=== PATIENT | male | born 1980 | race Caucasian/White ===

== ENCOUNTER 2016-06-09 15:30 | Outpatient (RCR) | payer BC ==
[~2016-06-09 15:30] MED LIST: AMBIEN CR12.5 MG ORAL; ATIVAN0.5 MG ORAL; AUGMENTIN 875-1 EAC1 ORAL; AZITHROMYCIN250 MG ORAL; BACTRIM DS TAB1 EAC1 ORAL; CIPRO500 MG PO; COLACE100 MG ORAL; FLAGYL500 MG ORAL; GUAIFENESIN-CO118 M1 ORAL; HYDROCODON-ACE1 EAC4 ORAL; LEVAQUIN750 MG ORAL; NEURONTIN100 MG ORAL; NORCO 5-325 TA1 EACH ORAL; ONDANSETRON ODT4 MG ORAL; PERCOCET 5-3251 EACH ORAL; PHENERGAN SUPP25 MG RECTAL; PHENERGAN25 M1 ORAL; PREDNISONE; PREDNISONE20 MG ORAL; PROTONIX40 MG ORAL; PROZAC10 MG ORAL; RANITIDINE HCL150 MG ORAL; RESTORIL15 MG ORAL; TRAMADOL HCL50 MG ORAL; ZANTAC150 MG ORAL; ZOFRAN ODT4 MG ORAL; ZOFRAN4 MG ORAL
[2016-06-13] MEDS ORDERED: OMEPRAZOLE20 M2 ORAL (11:35)
[2016-06-13] MEDS ORDERED: LIDEX15 GM TOPIC (12:00)
== END 2016-07-01 | disposition home or self-care (01) ==
LOC: PTY 15:30
DX: M54.5 Low back pain (principal); S13.4XXA Sprain of ligaments of cervical spine, initial encounter; S23.3XXA Sprain of ligaments of thoracic spine, initial encounter; X58.XXXA Exposure to other specified factors, initial encounter; Y92.9 Unspecified place or not applicable; Y99.8 Other external cause status
CPT/HCPCS: 97110; 97140; 97162; G0283

== ENCOUNTER 2016-06-13 11:21 | Inpatient (IN) | payer BC ==
[~2016-06-13] VITALS: Ht 198.1 cm; Wt 108.9 kg
[2016-06-13] MEDS ORDERED: OMEPRAZOLE20 M2 ORAL (11:35)
[2016-06-13] MEDS ORDERED: LIDEX15 GM TOPIC (12:00)
[2016-06-13 12:20] LABS: BASOPHILS % (AUTO) 0.6 % (0.0-2.0); LYMPHOCYTES % (AUTO) 21.8 % (20.0-45.0); MEAN CORPUSCULAR HEMOGLOBIN 28.6 PG (27.0-31.0); MEAN CORPUSCULAR HGB CONC 32.9 G/DL (32.0-36.0); MEAN CORPUSCULAR VOLUME 87 FL (80-99); MEAN PLATELET VOLUME 7.8 FL (6.5-10.1); MONOCYTES % (AUTO) 5.5 % (1.0-10.0); NEUTROPHILS % (AUTO) 71.1 % (45.0-75.0); PLATELET COUNT 342 K/UL (150-450); RED BLOOD COUNT 5.49 M/UL (4.70-6.10); RED CELL DISTRIBUTION WIDTH 13.2 % (11.6-14.8); WHITE BLOOD COUNT 16.8 K/UL (4.8-10.8)
[2016-06-13] MEDS ORDERED: Famotidine 20 MG/ 2ML VIAL IVP ONE (12:45)
[2016-06-13] MEDS ORDERED: LORazepam Inj 2mg/ml 1ml IV ONE (13:30)
[2016-06-13 13:47] LABS: ANION GAP 17 (5-15); CARBON DIOXIDE 23 mEQ/L (20-30); CHLORIDE 106 mEQ/L (98-107); CREATININE 0.7 mg/dL (0.7-1.2); GLOMERULAR FILTRATION RATE > 60 mL/min (>60); HEMOLYSIS 27; POTASSIUM 3.2 mEQ/L (3.4-4.9); SODIUM 146 mEQ/L (135-145)
[2016-06-13] MEDS ORDERED: Morphine Sulfate 4mg/ml Inj IVP ONE ×2 (14:00→16:00)
[2016-06-13 14:43] VITALS: BP 118/70
[2016-06-13 15:23] VITALS: BP 101/61
[2016-06-13 17:44] VITALS: BP 110/66
[2016-06-13 19:00] VITALS: BP 135/75
--- NOTE | 2016-06-13 20:59 | History and Physical ---
History of Present Illness General Date patient seen: Jun 13, 2016 Reason for Hospitalization: Abdominal Pain Present Illness HPI 35 year old male with hx of GI problems for a long time, presented to ER with episodes of N/V for a few days and most recently hematemesis. Pt also has intractable abdominal pain. Allergies: Coded Allergies: FLURBIPROFEN (Verified Allergy, Mild, 07/13/09) NSAIDS (NON-STEROIDAL ANTI-INFLAMMA (Unverified Allergy, Unknown, 12/07/14) Medication History Scheduled Fluocinonide* (Lidex*), 1 APPLIC TOPIC BID Fluoxetine Hcl* (Prozac*), 10 MG ORAL DAILY, (Reported) Gabapentin* (Neurontin*), 100 MG ORAL THREE TIMES A DAY, (Reported) Omeprazole (Omeprazole), 20 MG ORAL DAILY, (Reported) Promethazine Hcl* (Phenergan*), 50 MG ORAL Q8HR Ranitidine Hcl* (Zantac*), 150 MG ORAL QID, (Reported) Scheduled PRN Lorazepam* (Ativan*), 0.5 MG ORAL THREE TIMES A DAY PRN for For Anxiety, ( Reported) Ondansetron Odt* (Zofran Odt*), 4 MG ORAL Q6H PRN for Nausea & Vomiting Promethazine HCl (Promethegan), 25 MG RECTAL Q6H PRN for Nausea & Vomiting Temazepam* (Restoril*), 15 MG ORAL BEDTIME PRN for Insomnia, (Reported) Zolpidem Tartrate (Ambien Cr), 12.5 MG ORAL BEDTIME PRN for Insomnia, (Reported) Miscellaneous Medications [Prednisone], (Reported) Patient History History Provided By: Patient Healthcare decision maker Resuscitation status Advanced Directive on File Past Medical/Surgical History Past Medical/Surgical History: (1) Abdominal pain (2) Upper GI bleeding Review of Systems Gastrointestinal: Reports: abdominal pain, hematemesis, vomiting Physical Exam General Appearance: WD/WN Lines, tubes and drains: peripheral, central line HEENT: normocephalic, atraumatic Neck: non-tender, normal alignment Respiratory/Chest: chest wall non-tender, normal breath sounds Cardiovascular/Chest: normal peripheral pulses, normal rate Genitourinary/Rectal: normal genital exam Extremities: normal range of motion Last 24 Hour Vital Signs Date Time Temp Pulse Resp B/P Pulse Ox O2 Delivery O2 Flow Rate FiO2 06/13/16 19:00 97.7 68 20 135/75 97 Room Air 06/13/16 18:16 98.4 76 18 110/66 98 Room Air 74 06/13/16 17:44 98.4 76 18 110/66 98 Room Air 74 06/13/16 16:33 98.4 06/13/16 15:23 98.4 74 13 101/61 99 Room Air 06/13/16 14:48 97.2 06/13/16 14:43 97.2 68 19 118/70 98 Room Air 06/13/16 11:29 97.2 61 14 141/89 98 Room Air Laboratory Tests Test 06/13/16 11:45 06/13/16 13:10 White Blood Count 16.8 K/UL (4.8-10.8) H Red Blood Count 5.49 M/UL (4.70-6.10) Hemoglobin 15.7 G/DL (14.2-18.0) Hematocrit 47.8 % (42.0-52.0) Mean Corpuscular Volume 87 FL (80-99) Mean Corpuscular Hemoglobin 28.6 PG (27.0-31.0) Mean Corpuscular Hemoglobin Concent 32.9 G/DL (32.0-36.0) Red Cell Distribution Width 13.2 % (11.6-14.8) Platelet Count 342 K/UL (150-450) Mean Platelet Volume 7.8 FL (6.5-10.1) Neutrophils (%) (Auto) 71.1 % (45.0-75.0) Lymphocytes (%) (Auto) 21.8 % (20.0-45.0) Monocytes (%) (Auto) 5.5 % (1.0-10.0) Eosinophils (%) (Auto) 1.0 % (0.0-3.0) Basophils (%) (Auto) 0.6 % (0.0-2.0) Sodium Level 146 mEQ/L (135-145) H Potassium Level 3.2 mEQ/L (3.4-4.9) L Chloride Level 106 mEQ/L (98-107) Carbon Dioxide Level 23 mEQ/L (20-30) Anion Gap 17 (5-15) H Blood Urea Nitrogen 16 mg/dL (7-23) Creatinine 0.7 mg/dL (0.7-1.2) Estimat Glomerular Filtration Rate > 60 mL/min (>60) Glucose Level 110 mg/dL (74-106) H Calcium Level 8.0 mg/dL (8.6-10.2) L Height (Feet): 6 Weight (Pounds): 240 Medications Current Medications Medications (Trade) Dose Ordered Sig/Elisabeth Route PRN Reason Start Time Stop Time Status Last Admin Dose Admin Acetaminophen (Tylenol) 650 mg Q4H PRN ORAL fever 06/13/16 21:00 07/13/16 20:59 UNV Al Hydroxide/Mg Hydroxide (Mylanta II) 30 ml Q6H PRN ORAL dyspepsia 06/13/16 21:00 07/13/16 20:59 UNV Dextrose (Dextrose 50%) STAT PRN IV Hypoglycemia 06/13/16 21:00 07/13/16 20:59 UNV Dextrose/Sodium Chloride (D5 0.45% NS) 1,000 ml @ 75 mls/hr [id number] IV 06/13/16 17:40 07/13/16 17:39 UNV Diphenhydramine HCl (Benadryl) 25 mg Q6H PRN ORAL Itching/Pruritis 06/13/16 21:00 07/13/16 20:59 UNV Morphine Sulfate (Morphine Sulfate) 2 mg EVERY 4 HOURS PRN IVP severe Pain (Pain Scale 7-10) 06/13/16 21:00 06/20/16 20:59 UNV Nitroglycerin (Ntg) 0.4 mg Q5M X 3 DOSES PRN SL Prn Chest Pain 06/13/16 21:00 07/13/16 20:59 UNV Ondansetron HCl (Zofran) 4 mg Q6H PRN IVP Nausea & Vomiting 06/13/16 21:00 07/13/16 20:59 UNV Polyethylene Glycol (Miralax) 17 gm HSPRN PRN ORAL Constipation 06/13/16 21:00 07/13/16 20:59 UNV Temazepam (Restoril) 15 mg HSPRN PRN ORAL Insomnia 06/13/16 21:00 06/20/16 20:59 UNV Assessment/Plan Problem List: (1) Upper GI bleeding ICD Codes: K92.2 - Gastrointestinal hemorrhage, unspecified SNOMED: 81825909 (2) Abdominal pain ICD Codes: R10.9 - Unspecified abdominal pain SNOMED: 09736640 Qualifiers: Qualified Codes: R10.84 - Generalized abdominal pain Assessment/Plan npo iv fluids pain management gi evaluation EDUARDA MARI Jun 13, 2016 20:59
[2016-06-13] MEDS ORDERED: Nitroglycerin Subl 0.4mg tab (Bottle Of 25) SL PRN (21:00)
[2016-06-13] MEDS ORDERED: Mylanta II UD 30ml ORAL PRN (21:00)
[2016-06-13] MEDS ORDERED: Miralax 17gm pkt ORAL PRN (21:00)
[2016-06-13] MEDS: Morphine Sulfate 2mg/ml Inj IVP PRN (21:22)
[2016-06-13] MEDS: D5 1/2NS 1,000 ML IV SCH (21:45)
[2016-06-13 23:12] VITALS: BP 125/82
[2016-06-14] VITALS: BP 134/81
[2016-06-14] MEDS: Morphine Sulfate 2mg/ml Inj IVP PRN (01:39)
[2016-06-14] MEDS ORDERED: HYDROmorphone 1mg/ml Carpuject IVP PRN (02:30)
[2016-06-14 04:00] VITALS: BP 137/90
[2016-06-14 07:23] LABS: BASOPHILS % (AUTO) 0.7 % (0.0-2.0); EOSINOPHILS % (AUTO) 1.3 % (0.0-3.0); LYMPHOCYTES % (AUTO) 32.2 % (20.0-45.0); MEAN CORPUSCULAR HEMOGLOBIN 29.3 PG (27.0-31.0); MEAN CORPUSCULAR HGB CONC 33.5 G/DL (32.0-36.0); MEAN CORPUSCULAR VOLUME 87 FL (80-99); MEAN PLATELET VOLUME 8.1 FL (6.5-10.1); MONOCYTES % (AUTO) 6.5 % (1.0-10.0); NEUTROPHILS % (AUTO) 59.3 % (45.0-75.0); PLATELET COUNT 298 K/UL (150-450); RED BLOOD COUNT 4.87 M/UL (4.70-6.10); RED CELL DISTRIBUTION WIDTH 12.9 % (11.6-14.8)
[2016-06-14 07:25] LABS: ALANINE AMINOTRANSFERASE 31 U/L (3-41); ALBUMIN/GLOBULIN RATIO 1.3 (1.0-2.7); AMYLASE 39 U/L (10-110); ANION GAP 15 (5-15); ASPARTATE AMINO TRANSFERASE 16 U/L (5-40); CALCIUM 8.9 mg/dL (8.6-10.2); CARBON DIOXIDE 27 mEQ/L (20-30); CHLORIDE 102 mEQ/L (98-107); CREATININE 0.7 mg/dL (0.7-1.2); GLOMERULAR FILTRATION RATE > 60 mL/min (>60); HEMOLYSIS 5; LIPASE 19 U/L (< 60); POTASSIUM 3.8 mEQ/L (3.4-4.9); SODIUM 144 mEQ/L (135-145); TOTAL PROTEIN 6.7 g/dL (6.6-8.7)
[2016-06-14 08:03] VITALS: BP 133/75
[2016-06-14] MEDS: D5 1/2NS 1,000 ML IV SCH (09:43)
--- NOTE | 2016-06-14 11:45 | Pulmonology Progress Note ---
Assessment/Plan Problems: (1) Upper GI bleeding (2) Abdominal pain Assessment/Plan npo iv fluids adjust pain meds Subjective ROS Limited/Unobtainable: No Interval Events: wants more pain meds Allergies: Coded Allergies: FLURBIPROFEN (Verified Allergy, Mild, 07/13/09) NSAIDS (NON-STEROIDAL ANTI-INFLAMMA (Unverified Allergy, Unknown, 12/07/14) Objective Last 24 Hour Vital Signs Date Time Temp Pulse Resp B/P Pulse Ox O2 Delivery O2 Flow Rate FiO2 06/14/16 09:17 97.5 06/14/16 08:03 97.5 73 14 133/75 98 Room Air 06/14/16 04:00 97.9 65 18 137/90 96 Room Air 06/14/16 00:00 96.6 72 18 134/81 95 Room Air 06/13/16 23:12 97.5 78 20 125/82 98 Room Air 06/13/16 21:52 97.7 06/13/16 19:00 97.7 68 20 135/75 97 Room Air 06/13/16 18:16 98.4 76 18 110/66 98 Room Air 74 06/13/16 17:44 98.4 76 18 110/66 98 Room Air 74 06/13/16 16:33 98.4 06/13/16 15:23 98.4 74 13 101/61 99 Room Air 06/13/16 14:48 97.2 06/13/16 14:43 97.2 68 19 118/70 98 Room Air Intake and Output 06/13/16 06/14/16 19:00 07:00 Intake Total 675 ml Output Total 200 ml Balance -200 ml 675 ml Intake IV Total 675 ml Output Emesis 200 ml # Voids 4 General Appearance: WD/WN HEENT: normocephalic Respiratory/Chest: chest wall non-tender, lungs clear Abdomen: normal bowel sounds, no organomegaly Neurologic/Psychiatric: travel rn II-XII grossly normal Laboratory Tests 06/13/16 11:45: White Blood Count 16.8H, Red Blood Count 5.49, Hemoglobin 15.7, Hematocrit 47.8 , Mean Corpuscular Volume 87, Mean Corpuscular Hemoglobin 28.6, Mean Corpuscular Hemoglobin Concent 32.9, Red Cell Distribution Width 13.2, Platelet Count 342, Mean Platelet Volume 7.8, Neutrophils (%) (Auto) 71.1, Lymphocytes (% ) (Auto) 21.8, Monocytes (%) (Auto) 5.5, Eosinophils (%) (Auto) 1.0, Basophils ( %) (Auto) 0.6 06/13/16 13:10: Sodium Level 146H, Potassium Level 3.2L, Chloride Level 106, Carbon Dioxide Level 23, Anion Gap 17H, Blood Urea Nitrogen 16, Creatinine 0.7, Estimat Glomerular Filtration Rate > 60, Glucose Level 110H, Calcium Level 8.0L 06/14/16 06:20: White Blood Count 11.0H, Red Blood Count 4.87, Hemoglobin 14.3, Hematocrit 42.6 , Mean Corpuscular Volume 87, Mean Corpuscular Hemoglobin 29.3, Mean Corpuscular Hemoglobin Concent 33.5, Red Cell Distribution Width 12.9, Platelet Count 298, Mean Platelet Volume 8.1, Neutrophils (%) (Auto) 59.3, Lymphocytes (% ) (Auto) 32.2, Monocytes (%) (Auto) 6.5, Eosinophils (%) (Auto) 1.3, Basophils ( %) (Auto) 0.7, Sodium Level 144, Potassium Level 3.8, Chloride Level 102, Carbon Dioxide Level 27, Anion Gap 15, Blood Urea Nitrogen 13, Creatinine 0.7, Estimat Glomerular Filtration Rate > 60, Glucose Level 97, Calcium Level 8.9, Prothrombin Time 10.0, Prothromb Time International Ratio 1.0, Activated Partial Thromboplast Time 24, Total Bilirubin 0.3, Aspartate Amino Transf (AST/ SGOT) 16, Alanine Aminotransferase (ALT/SGPT) 31, Alkaline Phosphatase 74, Total Protein 6.7, Albumin 3.9, Globulin 2.8, Albumin/Globulin Ratio 1.3, Amylase Level 39, Lipase 19 Current Medications Medications (Trade) Dose Ordered Sig/Elisabeth Route PRN Reason Start Time Stop Time Status Last Admin Dose Admin Acetaminophen (Tylenol) 650 mg Q4H PRN ORAL fever 06/13/16 21:00 07/13/16 20:59 Al Hydroxide/Mg Hydroxide (Mylanta II) 30 ml Q6H PRN ORAL dyspepsia 06/13/16 21:00 07/13/16 20:59 06/13/16 22:34 Dextrose (Dextrose 50%) STAT PRN IV Hypoglycemia 06/13/16 21:00 07/13/16 20:59 Dextrose/Sodium Chloride (D5 0.45% NS) 1,000 ml @ 75 mls/hr [id number] IV 06/13/16 21:15 07/13/16 21:14 06/14/16 09:43 Diphenhydramine HCl (Benadryl) 25 mg Q6H PRN ORAL Itching/Pruritis 06/13/16 21:00 07/13/16 20:59 Hydromorphone HCl (Dilaudid) 1 mg Q3H PRN IVP Moderate Pain (Pain Scale 4-6) 06/14/16 02:30 06/21/16 02:29 Hydromorphone HCl (Dilaudid) 2 mg Q3H PRN IVP Severe Pain (Pain Scale 7-10) 06/14/16 02:30 06/21/16 02:29 06/14/16 08:47 Nitroglycerin (Ntg) 0.4 mg Q5M X 3 DOSES PRN SL Prn Chest Pain 06/13/16 21:00 07/13/16 20:59 Ondansetron HCl (Zofran) 4 mg Q6H PRN IVP Nausea & Vomiting 06/13/16 21:00 07/13/16 20:59 06/14/16 09:42 Polyethylene Glycol (Miralax) 17 gm HSPRN PRN ORAL Constipation 06/13/16 21:00 07/13/16 20:59 Temazepam (Restoril) 15 mg HSPRN PRN ORAL Insomnia 06/13/16 21:00 06/20/16 20:59 06/13/16 22:34 EDUARDA MARI Jun 14, 2016 11:44
[2016-06-14 11:49] VITALS: BP 136/86
--- NOTE | 2016-06-14 14:46 | Emergency Room Report ---
History of Present Illness General Chief Complaint: Abdominal Pain Source: Patient Present Illness HPI Patient presents with complaints of generalized abdominal pain Patient has had a visit to our emergency room on several occasions Reports that he has had previous upper and lower endoscopies Pain is 12/08 Again diffuse has previous Patient reports vomiting Denies any diarrhea Denies any fevers or chills Denies any blood in the stool Allergies: Coded Allergies: FLURBIPROFEN (Verified Allergy, Mild, 07/13/09) NSAIDS (NON-STEROIDAL ANTI-INFLAMMA (Unverified Allergy, Unknown, 12/07/14) Patient History Past Medical History: see triage record Pertinent Family History: none Reviewed Nursing Documentation: PMH: Agreed, PSxH: Agreed Nursing Documentation-PMH Past Medical History: No History, Except For Hx Cardiac Problems: No Hx Hypertension: No Hx Pacemaker: No Hx Asthma: No Hx COPD: No Hx Diabetes: No Hx Cancer: No Hx Gastrointestinal Problems: Yes - Gastric ulcer and GI bleeding Hx Dialysis: No Hx Neurological Problems: No Hx Cerebrovascular Accident: No Hx Seizures: No Review of Systems All Other Systems: negative except mentioned in HPI Physical Exam Vital Signs Date Time Temp Pulse Resp B/P Pulse Ox O2 Delivery O2 Flow Rate FiO2 06/13/16 11:29 97.2 61 14 141/89 98 Room Air Sp02 EP Interpretation: reviewed, normal General Appearance: no apparent distress Head: normocephalic, atraumatic Eyes: bilateral eye EOMI, bilateral eye PERRL ENT: hearing grossly normal, TMs + canals normal, uvula midline, dry mucus membranes Neck: full range of motion, supple, no meningismus, no bony tend Respiratory: lungs clear, normal breath sounds, no rhonchi, no respiratory distress, no retraction, no accessory muscle use Cardiovascular #1: normal peripheral pulses, regular rate, rhythm, no edema, no gallop, no JVD, no murmur Gastrointestinal: normal bowel sounds, soft, no mass, no organomegaly, non- distended, no guarding, no hernia, no pulsatile mass, no rebound, tenderness - Patient's abdomen is soft, has essentially discomfort diffusely on the exam, and subjectively feels uncomfortable diffusely, I cannot localize the pain Genitourinary: no CVA tenderness Musculoskeletal: normal inspection Neurologic: oriented x3, responsive, deck scaler III-XII nml as tested, motor strength/ tone normal, sensory intact Psychiatric: mood/affect normal Skin: normal color, no rash, warm/dry, palpation normal Lymphatic: normal inspection, no adenopathy Medical Decision Making Diagnostic Impression: Primary Impression: Abdominal pain Qualified Codes: R10.84 - Generalized abdominal pain Additional Impression: Colitis ER Course With the history exam and presentation, multiple differentials considered, including but not limited to appendicitis, gastritis, cholecystitis, diverticulitis Patient was having multiple previous CAT scan imaging therefore this was not performed on this visit after multiple anti-medics and anti-spasmodics Patient receiving IV hydration patient still continued to complain of abdominal pain On previous visits the patient had reported that he did not have insurance and did not want to stay in the hospital Today he states that he did have medical coverage and wanted to have further information and requesting to be admitted Given the patient's discomfort elevated white blood for count I felt that he is a candidate for inpatient evaluation and patient admitted for further care Labs Test 06/13/16 11:45 06/13/16 13:10 06/14/16 06:20 White Blood Count 16.8 K/UL (4.8-10.8) 11.0 K/UL (4.8-10.8) Red Blood Count 5.49 M/UL (4.70-6.10) 4.87 M/UL (4.70-6.10) Hemoglobin 15.7 G/DL (14.2-18.0) 14.3 G/DL (14.2-18.0) Hematocrit 47.8 % (42.0-52.0) 42.6 % (42.0-52.0) Mean Corpuscular Volume 87 FL (80-99) 87 FL (80-99) Mean Corpuscular Hemoglobin 28.6 PG (27.0-31.0) 29.3 PG (27.0-31.0) Mean Corpuscular Hemoglobin Concent 32.9 G/DL (32.0-36.0) 33.5 G/DL (32.0-36.0) Red Cell Distribution Width 13.2 % (11.6-14.8) 12.9 % (11.6-14.8) Platelet Count 342 K/UL (150-450) 298 K/UL (150-450) Mean Platelet Volume 7.8 FL (6.5-10.1) 8.1 FL (6.5-10.1) Neutrophils (%) (Auto) 71.1 % (45.0-75.0) 59.3 % (45.0-75.0) Lymphocytes (%) (Auto) 21.8 % (20.0-45.0) 32.2 % (20.0-45.0) Monocytes (%) (Auto) 5.5 % (1.0-10.0) 6.5 % (1.0-10.0) Eosinophils (%) (Auto) 1.0 % (0.0-3.0) 1.3 % (0.0-3.0) Basophils (%) (Auto) 0.6 % (0.0-2.0) 0.7 % (0.0-2.0) Sodium Level 146 mEQ/L (135-145) 144 mEQ/L (135-145) Potassium Level 3.2 mEQ/L (3.4-4.9) 3.8 mEQ/L (3.4-4.9) Chloride Level 106 mEQ/L (98-107) 102 mEQ/L (98-107) Carbon Dioxide Level 23 mEQ/L (20-30) 27 mEQ/L (20-30) Anion Gap 17 (5-15) 15 (5-15) Blood Urea Nitrogen 16 mg/dL (7-23) 13 mg/dL (7-23) Creatinine 0.7 mg/dL (0.7-1.2) 0.7 mg/dL (0.7-1.2) Estimat Glomerular Filtration Rate > 60 mL/min (>60) > 60 mL/min (>60) Glucose Level 110 mg/dL (74-106) 97 mg/dL (74-106) Calcium Level 8.0 mg/dL (8.6-10.2) 8.9 mg/dL (8.6-10.2) Prothrombin Time 10.0 SEC (9.30-11.50) Prothromb Time International Ratio 1.0 (0.9-1.1) Activated Partial Thromboplast Time 24 SEC (23-33) Total Bilirubin 0.3 mg/dL (0.0-1.2) Aspartate Amino Transf (AST/SGOT) 16 U/L (5-40) Alanine Aminotransferase (ALT/SGPT) 31 U/L (3-41) Alkaline Phosphatase 74 U/L (40-129) Total Protein 6.7 g/dL (6.6-8.7) Albumin 3.9 g/dL (3.5-5.2) Globulin 2.8 g/dL Albumin/Globulin Ratio 1.3 (1.0-2.7) Amylase Level 39 U/L (10-110) Lipase 19 U/L (< 60) Last Vital Signs Date Time Temp Pulse Resp B/P Pulse Ox O2 Delivery O2 Flow Rate FiO2 06/14/16 13:05 97.7 06/14/16 11:49 66 15 136/86 96 Room Air Status: improved Disposition: ADMITTED INPATIENT Condition: Serious Scripts Fluocinonide* (LIDEX*) 15 Gm Cr 1 APPLIC TOPIC BID for 5 Days, #15 GM 0 Refills Prov: ARCELIA ALMANZAR D.O. 06/13/16 Referrals: NON PHYSICIAN (PCP) ARCELIA ALMANZAR D.O. Jun 14, 2016 14:46
[2016-06-14 16:25] VITALS: BP 130/66
[2016-06-14 20:02] VITALS: BP 141/91
[2016-06-14] MEDS ORDERED: Zolpidem 5mg tab ORAL PRN (22:00)
[2016-06-15] VITALS: BP 128/76
[2016-06-15] MEDS: D5 1/2NS 1,000 ML IV SCH ×2 (00:19→14:02)
[2016-06-15] MEDS: Zolpidem 5mg tab ORAL PRN ×2 (00:59→22:00)
[2016-06-15 04:00] VITALS: BP 136/73
[2016-06-15 07:31] LABS: BASOPHILS % (AUTO) 0.5 % (0.0-2.0); MEAN CORPUSCULAR HEMOGLOBIN 28.8 PG (27.0-31.0); MEAN CORPUSCULAR HGB CONC 32.6 G/DL (32.0-36.0); MEAN CORPUSCULAR VOLUME 88 FL (80-99); MEAN PLATELET VOLUME 8.1 FL (6.5-10.1); MONOCYTES % (AUTO) 5.6 % (1.0-10.0); NEUTROPHILS % (AUTO) 76.8 % (45.0-75.0); PLATELET COUNT 304 K/UL (150-450); RED BLOOD COUNT 4.92 M/UL (4.70-6.10); RED CELL DISTRIBUTION WIDTH 13.1 % (11.6-14.8); WHITE BLOOD COUNT 11.2 K/UL (4.8-10.8)
--- NOTE | 2016-06-15 07:38 | Consultation ---
DATE OF CONSULTATION: 06/14/2016 GASTROLOGY CONSULTATION: CONSULTING PHYSICIAN: Regino La M.D. CHIEF COMPLAINT: I was asked to see this patient by Dr. Brenda Hamilton for evaluation of hematemesis. HISTORY OF PRESENT ILLNESS: The patient is a 35-year-old white man, who works and complains of abdominal pain and came in for sometime. He is on Reglan for few weeks and had some nausea and vomiting yesterday with some hematemesis. He has had a history of gastritis, and his last endoscopy was also five months ago and he is unaware of the results. He also has some intractable abdominal pain and appears to be comfortable at the examination. PAST MEDICAL HISTORY: Remote history of abdominal pain with gastritis. FAMILY HISTORY: Noncontributory. SOCIAL HISTORY: The patient lives in [facility]. REVIEW OF SYSTEMS: Otherwise negative. MEDICATIONS: See chart for details. ALLERGIES: He was on nonsteroidal antiinflammatory drugs. REVIEW OF SYSTEMS: Otherwise negative. PHYSICAL EXAMINATION: GENERAL: This is a very pleasant white man, seen in his room. HEENT: Normocephalic and atraumatic. Sclerae anicteric. Oropharynx clear. NECK: Supple. CHEST: Clear to auscultation. CARDIOVASCULAR: Revealed a regular rate. ABDOMEN: Soft and nontender. EXTREMITIES: Revealed no edema. LABORATORY DATA: Noted. ASSESSMENT: This patient presents with some nausea, vomiting, and hematemesis, which may be due to Dottie-Vizcaino tear. The patient will be observed . An endoscopy to be done to evaluate the upper gastrointestinal tract. For the time being, this will also be continued for now. RECOMMENDATIONS: Per above discussion and per orders written in the chart. Thank you for asking me to participate in the care of this patient. Regino La M.D. DR: LASHANDA JOB#: [id number] CC:
[2016-06-15 08:00] VITALS: BP 147/81
[2016-06-15 08:09] LABS: ALANINE AMINOTRANSFERASE 28 U/L (3-41); ALBUMIN/GLOBULIN RATIO 1.6 (1.0-2.7); ANION GAP 14 (5-15); ASPARTATE AMINO TRANSFERASE 15 U/L (5-40); CALCIUM 9.4 mg/dL (8.6-10.2); CARBON DIOXIDE 28 mEQ/L (20-30); CHLORIDE 98 mEQ/L (98-107); CREATININE 0.7 mg/dL (0.7-1.2); GLOMERULAR FILTRATION RATE > 60 mL/min (>60); HEMOLYSIS 6; PHOSPHORUS 3.9 mg/dL (2.5-4.8); POTASSIUM 4.1 mEQ/L (3.4-4.9); SODIUM 140 mEQ/L (135-145); TOTAL PROTEIN 6.9 g/dL (6.6-8.7)
--- NOTE | 2016-06-15 10:44 | General Progress Note ---
Assessment/Plan Assessment/Plan Assessment - abd pain - ? UGIB Recommendations - continue current Rx - EGD in am Subjective Allergies: Coded Allergies: FLURBIPROFEN (Verified Allergy, Mild, 07/13/09) NSAIDS (NON-STEROIDAL ANTI-INFLAMMA (Unverified Allergy, Unknown, 12/07/14) Subjective c/o abd pain c/o N/V per Rn, few specs of dark material in emesis Objective Last 24 Hour Vital Signs Date Time Temp Pulse Resp B/P Pulse Ox O2 Delivery O2 Flow Rate FiO2 06/15/16 08:29 97.9 06/15/16 08:00 97.9 70 18 147/81 95 Room Air 06/15/16 04:00 97.7 63 18 136/73 92 Room Air 06/15/16 00:00 96.8 66 18 128/76 95 Room Air 06/14/16 20:02 97.7 60 17 141/91 96 Room Air 06/14/16 16:25 97.3 60 15 130/66 96 Room Air 06/14/16 11:49 97.7 66 15 136/86 96 Room Air Intake and Output 06/14/16 06/15/16 19:00 07:00 Intake Total 600 ml 450 ml Output Total 20 ml Balance 580 ml 450 ml Intake Oral 0 ml IV Total 600 ml 450 ml Output Emesis 20 ml # Voids 3 4 Laboratory Tests 06/15/16 04:50: White Blood Count 11.2H, Red Blood Count 4.92, Hemoglobin 14.2, Hematocrit 43.4 , Mean Corpuscular Volume 88, Mean Corpuscular Hemoglobin 28.8, Mean Corpuscular Hemoglobin Concent 32.6, Red Cell Distribution Width 13.1, Platelet Count 304, Mean Platelet Volume 8.1, Neutrophils (%) (Auto) 76.8H, Lymphocytes ( %) (Auto) 16.0L, Monocytes (%) (Auto) 5.6, Eosinophils (%) (Auto) 1.0, Basophils (%) (Auto) 0.5, Prothrombin Time 10.0, Prothromb Time International Ratio 1.0, Activated Partial Thromboplast Time 26, Sodium Level 140, Potassium Level 4.1, Chloride Level 98, Carbon Dioxide Level 28, Anion Gap 14, Blood Urea Nitrogen 8, Creatinine 0.7, Estimat Glomerular Filtration Rate > 60, Glucose Level 117H, Calcium Level 9.4, Phosphorus Level 3.9, Magnesium Level 2.0, Total Bilirubin 0.5, Aspartate Amino Transf (AST/SGOT) 15, Alanine Aminotransferase ( ALT/SGPT) 28, Alkaline Phosphatase 78, Total Protein 6.9, Albumin 4.3, Globulin 2.6, Albumin/Globulin Ratio 1.6 Height (Feet): 6 Height (Inches): 0.00 Weight (Pounds): 240 Objective NCAT supple CTA[ RRR soft no edema non focal DOROTHY LAGOS Jun 15, 2016 10:44
[2016-06-15 11:55] VITALS: BP 144/96
[2016-06-15 16:00] VITALS: BP 142/89
--- NOTE | 2016-06-15 19:01 | Pulmonology Progress Note ---
Assessment/Plan Problems: (1) Upper GI bleeding (2) Abdominal pain Assessment/Plan npo iv fluids adjust pain meds Subjective ROS Limited/Unobtainable: No Gastrointestinal/Abdominal: Reports: bloating, blood in stool, diarrhea, nausea Allergies: Coded Allergies: FLURBIPROFEN (Verified Allergy, Mild, 07/13/09) NSAIDS (NON-STEROIDAL ANTI-INFLAMMA (Unverified Allergy, Unknown, 12/07/14) Objective Last 24 Hour Vital Signs Date Time Temp Pulse Resp B/P Pulse Ox O2 Delivery O2 Flow Rate FiO2 06/15/16 14:47 98.6 06/15/16 11:55 98.6 71 15 144/96 99 Room Air 06/15/16 08:00 97.9 70 18 147/81 95 Room Air 06/15/16 04:00 97.7 63 18 136/73 92 Room Air 06/15/16 00:00 96.8 66 18 128/76 95 Room Air 06/14/16 20:02 97.7 60 17 141/91 96 Room Air Intake and Output 06/14/16 06/15/16 19:00 07:00 Intake Total 600 ml 450 ml Output Total 20 ml Balance 580 ml 450 ml Intake Oral 0 ml IV Total 600 ml 450 ml Output Emesis 20 ml # Voids 3 4 General Appearance: no acute distress HEENT: normocephalic, atraumatic, PERRL Respiratory/Chest: chest wall non-tender, decreased breath sounds, accessory muscle use Cardiovascular: normal peripheral pulses, normal rate, regular rhythm, no JVD Abdomen: hyperactive bowel sounds, distended, guarding, tender, rebound tenderness Genitourinary: normal external genitalia Extremities: no cyanosis Skin: no rash, no lesions Neurologic/Psychiatric: housekeeper cleaning cooking II-XII grossly normal, no motor/sensory deficits Laboratory Tests 06/15/16 04:50: White Blood Count 11.2H, Red Blood Count 4.92, Hemoglobin 14.2, Hematocrit 43.4 , Mean Corpuscular Volume 88, Mean Corpuscular Hemoglobin 28.8, Mean Corpuscular Hemoglobin Concent 32.6, Red Cell Distribution Width 13.1, Platelet Count 304, Mean Platelet Volume 8.1, Neutrophils (%) (Auto) 76.8H, Lymphocytes ( %) (Auto) 16.0L, Monocytes (%) (Auto) 5.6, Eosinophils (%) (Auto) 1.0, Basophils (%) (Auto) 0.5, Prothrombin Time 10.0, Prothromb Time International Ratio 1.0, Activated Partial Thromboplast Time 26, Sodium Level 140, Potassium Level 4.1, Chloride Level 98, Carbon Dioxide Level 28, Anion Gap 14, Blood Urea Nitrogen 8, Creatinine 0.7, Estimat Glomerular Filtration Rate > 60, Glucose Level 117H, Calcium Level 9.4, Phosphorus Level 3.9, Magnesium Level 2.0, Total Bilirubin 0.5, Aspartate Amino Transf (AST/SGOT) 15, Alanine Aminotransferase ( ALT/SGPT) 28, Alkaline Phosphatase 78, Total Protein 6.9, Albumin 4.3, Globulin 2.6, Albumin/Globulin Ratio 1.6 Current Medications Medications (Trade) Dose Ordered Sig/Elisabeth Route PRN Reason Start Time Stop Time Status Last Admin Dose Admin Acetaminophen (Tylenol) 650 mg Q4H PRN ORAL fever 06/13/16 21:00 07/13/16 20:59 Al Hydroxide/Mg Hydroxide (Mylanta II) 30 ml Q6H PRN ORAL dyspepsia 06/13/16 21:00 07/13/16 20:59 06/13/16 22:34 Dextrose (Dextrose 50%) STAT PRN IV Hypoglycemia 06/13/16 21:00 07/13/16 20:59 Dextrose/Sodium Chloride (D5 0.45% NS) 1,000 ml @ 75 mls/hr [id number] IV 06/13/16 21:15 07/13/16 21:14 06/15/16 14:02 Diphenhydramine HCl (Benadryl) 25 mg Q6H PRN ORAL Itching/Pruritis 06/13/16 21:00 07/13/16 20:59 Hydromorphone HCl (Dilaudid) 1 mg Q3H PRN IVP Moderate Pain (Pain Scale 4-6) 06/14/16 02:30 06/21/16 02:29 Hydromorphone HCl (Dilaudid) 2 mg Q3H PRN IVP Severe Pain (Pain Scale 7-10) 06/14/16 02:30 06/21/16 02:29 06/15/16 17:23 Nitroglycerin (Ntg) 0.4 mg Q5M X 3 DOSES PRN SL Prn Chest Pain 1/13/17 21:00 07/13/16 20:59 Ondansetron HCl (Zofran) 4 mg EVERY 4 HOURS PRN IVP Nausea & Vomiting 06/14/16 13:00 07/14/16 12:59 06/15/16 18:05 Polyethylene Glycol (Miralax) 17 gm HSPRN PRN ORAL Constipation 06/13/16 21:00 07/13/16 20:59 Zolpidem Tartrate (Ambien) 10 mg HSPRN PRN ORAL Insomnia 06/14/16 22:30 07/14/16 22:29 06/15/16 00:59 EDUARDA MARI Jun 15, 2016 19:01
[2016-06-15 20:00] VITALS: BP 133/88
[2016-06-16] VITALS (8 sets, daily range): BP systolic 109–143; BP diastolic 73–86
[2016-06-16] MEDS: D5 1/2NS 1,000 ML IV SCH (01:17)
--- NOTE | 2016-06-16 10:34 | Pre-Procedure Note/Attestation ---
Pre-Procedure Note/Attestation Complete Prior to Procedure Planned Procedure: not applicable Procedure Narrative: egd Indications for Procedure Pre-Operative Diagnosis: abd pain Attestation I attest that I discussed the nature of the procedure; its benefits; risks and complications; and alternatives (and the risks and benefits of such alternatives ), prior to the procedure, with the patient (or the patient's legal title insurance sales representative). I attest that, if there was a reasonable possibility of needing a blood transfusion, the patient (or the patient's legal title insurance sales representative) was given the [facility] standardized written summary, pursuant to the Jamil Kye Blood Safety Act ([place] Health and Safety Code # 1645, as amended). I attest that I re-evaluated the patient just prior to the surgery and that there has been no change in the patient's H&P, except as documented below: AILEEN GOMEZ Jun 16, 2016 10:34
--- NOTE | 2016-06-16 11:03 | Immediate Post-Op Evaluation ---
Immediate Post-Op Evalulation Immediate Post-Op Evalulation Procedure: EGD Date of Evaluation: Jun 16, 2016 Time of Evaluation: 12:14 IV Fluids: 600 Blood Products: 0 Estimated Blood Loss: 0 Urinary Output: 0 Blood Pressure Systolic: 108 Blood Pressure Diastolic: 72 Pulse Rate: 104 Respiratory Rate: 18 O2 Sat by Pulse Oximetry: 100 Temperature (Fahrenheit): 97.4 Pain Score (1-10): 0 Nausea: No Vomiting: No Complications 0 Patient Status: awake, reacts, patent, none Hydration Status: adequate Drug: N/A ROBERT AGARWAL M.D. Jun 16, 2016 11:03
--- NOTE | 2016-06-16 11:03 | Anethesia Preoperative Eval ---
Anesthesia Pre-op PMH/ROS General Date of Evaluation: Jun 16, 2016 Anesthesiologist: Ruben ASA Score: ASA 2 Mallampati Score Class I : Soft palate, uvula, fauces, pillars visible Class II: Soft palate, uvula, fauces visible Class III: Soft palate, base of uvula visible Class IV: Only hard plate visible Mallampati Classification: Class III Surgeon: Ayana Diagnosis: GI bleed Surgical Procedure: EGD Anesthesia History: none Family History: no anesthesia problems Allergies: Coded Allergies: FLURBIPROFEN (Verified Allergy, Mild, 07/13/09) NSAIDS (NON-STEROIDAL ANTI-INFLAMMA (Unverified Allergy, Unknown, 12/07/14) Medications: see eMAR Past Medical History Cardiovascular: Denies: CAD, HTN, MS, arrhythmia, other, valve dz Pulmonary: Denies: COPD, ARASELI, asthma, other Gastrointestinal/Genitourinary: Reports: GERD, other - gastric ulcer, Denies: CRI, ESRD Neurologic/Psychiatric: Denies: CVA, TIA, dementia, depression/anxiety, other Endocrine: Denies: DM, hypothyroidism, other, steroids HEENT: Denies: [place] (L), [place] (R), cataract (L), cataract (R), glaucoma, other Hematology/Immune: Denies: DVT, anemia, bleeding disorder, other Musculoskeletal/Integumentary: Denies: DDD, DJD, OA, RA, edema, other Other: obesity - morbid PSxH Narrative: Left ACL repair Anesthesia Pre-op Phys. Exam Physician Exam Last Vital Signs Date Time Temp Pulse Resp B/P Pulse Ox O2 Delivery O2 Flow Rate FiO2 06/16/16 07:58 98.1 69 21 125/75 97 Room Air Constitutional: NAD Cardiovascular: RRR Respiratory: CTA Airway Exam Mallampati Score: Class III Anesthesia Pre-op A/P Labs see chart Studies Pre-op Studies: EKG - sr Risk Assessment & Plan Assessment: ASA II Plan: MAC Status Change Before Surgery: No Pre-Antibiotics Drug: N/A ROBERT AGARWAL M.D. Jun 16, 2016 11:03
[2016-06-16] MEDS ORDERED: LR 1000ml 1,000 ML IVLG SCH (11:04)
--- NOTE | 2016-06-16 11:04 | 48 Hour Post Anesthesia Eval ---
Post Anesthesia Evaluation Procedure: EGD Date of Evaluation: Jun 16, 2016 Blood Pressure Systolic: 109 0: 73 Pulse Rate: 92 Respiratory Rate: 16 Temperature (Fahrenheit): 97.4 O2 Sat by Pulse Oximetry: 100 Airway: patent Nausea: No Vomiting: No Pain Intensity: 0 Hydration Status: adequate Cardiopulmonary Status: qat baseline Mental Status/LOC: patient returned to baseline Post-Anesthesia Complications: 0 Follow-up care needed: N/A - further care as per primary team ROBERT AGARWAL M.D. Jun 16, 2016 11:04
[2016-06-16] MEDS ORDERED: Labetalol 5mg/ml 20ml vial IV PRN (11:15)
[2016-06-16] MEDS ORDERED: DiphenhydrAMINE 50mg/ml Inj IVP PRN (11:15)
[2016-06-16] MEDS ORDERED: Propofol 10mg/ml 20ml IV ONE (11:45)
[2016-06-16] MEDS ORDERED: LR 1000ml ONE (11:45)
[2016-06-16] MEDS ORDERED: Lidocaine 1% MPF 10mg/ml 5ml ONE (11:45)
--- NOTE | 2016-06-16 12:02 | Endoscopy Procedure Note ---
Endoscopy Procedure Note Indication for Procedure: abd pain Procedures Performed: EGD Operative Findings/Diagnosis: du Specimen: yes Pt Tolerated Procedure Well: Yes Estimated Blood Loss: none Anesthesiologist: jaron Anesthesia: MAC Implant(s) used?: No 50 yrs or older w/o bx or poly: Not Applicable 10yrs. F/U not recommended: Not Applicable AILEEN GOMEZ Jun 16, 2016 12:01
--- NOTE | 2016-06-16 14:54 | Pulmonology Progress Note ---
Assessment/Plan Problems: (1) Upper GI bleeding (2) Abdominal pain Assessment/Plan npo iv fluids adjust pain meds Subjective ROS Limited/Unobtainable: No Gastrointestinal/Abdominal: Reports: bloating, blood in stool, constipation, nausea Allergies: Coded Allergies: FLURBIPROFEN (Verified Allergy, Mild, 07/13/09) NSAIDS (NON-STEROIDAL ANTI-INFLAMMA (Unverified Allergy, Unknown, 12/07/14) Objective Last 24 Hour Vital Signs Date Time Temp Pulse Resp B/P Pulse Ox O2 Delivery O2 Flow Rate FiO2 06/16/16 12:14 92 16 100 06/16/16 12:13 104 18 100 06/16/16 11:45 98.2 70 21 132/82 97 Room Air 06/16/16 09:50 97.4 06/16/16 07:58 98.1 69 21 125/75 97 Room Air 06/16/16 04:00 97.2 74 18 123/73 94 Room Air 06/16/16 00:00 97.5 74 18 143/86 96 Room Air 06/15/16 20:00 98.4 68 17 133/88 100 Room Air 06/15/16 16:00 98.2 69 16 142/89 99 Room Air Intake and Output 06/15/16 06/16/16 19:00 07:00 Intake Total 525 ml 375 ml Balance 525 ml 375 ml IV Total 525 ml 375 ml # Voids 3 7 General Appearance: no acute distress HEENT: normocephalic, atraumatic, PERRL Respiratory/Chest: chest wall non-tender, decreased breath sounds, accessory muscle use Cardiovascular: normal peripheral pulses, normal rate, regular rhythm, no JVD Abdomen: hyperactive bowel sounds, distended, guarding, tender, rebound tenderness Genitourinary: normal external genitalia Extremities: no cyanosis Skin: no rash, no lesions 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, no motor/sensory deficits Current Medications Medications (Trade) Dose Ordered Sig/Elisabeth Route PRN Reason Start Time Stop Time Status Last Admin Dose Admin Acetaminophen (Tylenol) 650 mg Q4H PRN ORAL fever 06/13/16 21:00 07/13/16 20:59 Acetaminophen (Tylenol) 650 mg Q4H PRN ORAL Mild Pain (Pain Scale 1-3) 06/16/16 11:15 UNV Al Hydroxide/Mg Hydroxide (Mylanta II) 30 ml Q6H PRN ORAL dyspepsia 06/13/16 21:00 07/13/16 20:59 06/13/16 22:34 Dextrose (Dextrose 50%) STAT PRN IV Hypoglycemia 06/13/16 21:00 07/13/16 20:59 Dextrose/Sodium Chloride (D5 0.45% NS) 1,000 ml @ 75 mls/hr [id number] IV 06/13/16 21:15 07/13/16 21:14 06/16/16 01:17 Diphenhydramine HCl (Benadryl) 25 mg Q6H PRN ORAL Itching/Pruritis 06/13/16 21:00 07/13/16 20:59 Diphenhydramine HCl 25 mg 25 mg Q15M PRN IVP Itching 06/16/16 11:15 UNV Hydralazine HCl (Apresoline) 5 mg Q30M PRN IV SBP>160 OR___/DBP>90 OR___ 06/16/16 11:15 UNV Hydromorphone HCl (Dilaudid) 1 mg Q3H PRN IVP Moderate Pain (Pain Scale 4-6) 06/14/16 02:30 06/21/16 02:29 Hydromorphone HCl (Dilaudid) 2 mg Q3H PRN IVP Severe Pain (Pain Scale 7-10) 06/14/16 02:30 06/21/16 02:29 06/16/16 12:48 Labetalol HCl (Normodyne) 5 mg Q10M PRN IV SBP>160 or____/ DBP>90 or 06/16/16 11:15 06/17/16 11:14 UNV Lactated Ringer's (Lactated Ringer's 1000ml) 1,000 ml @ 10 mls/hr Q24H IVLG 06/16/16 11:04 06/16/16 13:03 UNV Nitroglycerin (Ntg) 0.4 mg Q5M X 3 DOSES PRN SL Prn Chest Pain 06/13/16 21:00 07/13/16 20:59 Ondansetron HCl (Zofran) 4 mg EVERY 4 HOURS PRN IVP Nausea & Vomiting 06/14/16 13:00 07/14/16 12:59 06/16/16 11:08 Ondansetron HCl (Zofran) 4 mg Q1H PRN IVP Nausea & Vomiting 06/16/16 11:15 UNV Pantoprazole (Protonix) 40 mg DAILY ORAL 06/17/16 09:00 07/17/16 08:59 UNV Polyethylene Glycol (Miralax) 17 gm HSPRN PRN ORAL Constipation 06/13/16 21:00 07/13/16 20:59 Zolpidem Tartrate (Ambien) 10 mg HSPRN PRN ORAL Insomnia 06/14/16 22:30 07/14/16 22:29 06/15/16 22:00 EDUARDA MARI Jun 16, 2016 14:54
[2016-06-16] MEDS ORDERED: D5 1/2NS 1000ml IV ONE (14:59)
--- NOTE | 2016-06-16 21:28 | Procedure Note ---
DATE OF PROCEDURE: 06/16/2016 SURGEON: Mark Piña M.D. PROCEDURE: Upper endoscopy with biopsy. ANESTHESIOLOGIST: Dr. Raygoza. INSTRUMENT: Olympus adult flexible endoscope. INDICATION: Abdominal pain and hematemesis. REASON FOR PROCEDURE: The procedure, risks, benefits, and possible consequences, including hemorrhage, aspiration, perforation and infection, and alternative treatments, were explained to the patient/legal guardian by Dr. Mark Piña and the patient/legal guardian understood and accepted these risks. PROCEDURE: After informed consent was obtained and the patient was adequately sedated, Olympus upper endoscope was advanced from mouth into the second portion of the duodenum and retroflexion was performed of the stomach. The patient had few small shallow duodenal ulceration in the second portion of the duodenum without any obvious bleeding. These are very superficial ulcerations. There is also some duodenitis. In the stomach, there was diffuse gastritis. Random biopsy from body of the stomach was obtained to rule out H. pylori infection. The patient tolerated the procedure without any complication. SUMMARY OF FINDINGS: 1. Multiple small shallow duodenal ulcerations. 2. Duodenitis. 3. Gastritis, status post biopsy. RECOMMENDATIONS: Follow up biopsy and treat for H. pylori if it is positive. Meanwhile, the patient to be on PPI daily. Mark Piña M.D. DR: Mallory JOB#: [id number] CC:
--- NOTE | 2016-06-17 14:17 | Discharge Summary ---
Discharge Summary Hospital Course Date of Admission Jun 13, 2016 at 13:41 Date of Discharge Jun 16, 2016 at 15:00 Admitting Diagnosis interactable vomiting, dehydration HPI Leonard Tamayo is a 35 year old male who was admitted on Jun 13, 2016 at 13:41 for Interactable Vomiting,Dehydration Hospital Course dc summary dictated # [id number] Discharge Medications Continued Medications: Fluoxetine Hcl* (Prozac*) 10 Mg Capsule 10 MG ORAL DAILY, CAP Gabapentin* (Neurontin*) 100 Mg Capsule 100 MG ORAL THREE TIMES A DAY, #15 CAP 0 Refills Lorazepam* (Ativan*) 0.5 Mg Tablet 0.5 MG ORAL THREE TIMES A DAY PRN for For Anxiety, TAB Ondansetron Odt* (Zofran Odt*) 4 Mg Tab.rapdis 4 MG ORAL Q6H PRN for Nausea & Vomiting, #12 TAB 0 Refills Promethazine Hcl* (Phenergan*) 25 Mg Tablet 50 MG ORAL Q8HR, #20 TAB 0 Refills Temazepam* (Restoril*) 15 Mg Capsule 15 MG ORAL BEDTIME PRN for Insomnia, CAP Discharge Discharge Disposition Patient was discharged to Home () Discharge Diagnoses: Discharge Instructions Discharge Instructions Special Instructions I have been assigned to complete a D/C Summary on this account. I was not involved in the patient management Madai Pérez NP (Vanchtein) Jun 17, 2016 14:17
--- NOTE | 2016-06-18 06:07 | Discharge Summary 2 SIG ---
DATE OF ADMISSION: 06/13/2016 DATE OF DISCHARGE: 06/16/2016 REASON FOR ADMISSION : 35-year-old male with history of gastric ulcer, presented to the emergency room with episodes of nausea and vomiting for few days as well as recent hematemesis. The patient also had intractable abdominal pain. The patient presented with leukocytosis, but no fever. Potassium was 3.2, evidence of mild dehydration with elevated anion gap and sodium 146. He denied fevers, chills, or diarrhea. He denied any blood in the stool. He did have previous upper and lower endoscopies. He described the pain as a 7/10 on a scale 1 to 10. No other significant medical history. The patient had multiply previous CAT scans imaging done before. Therefore, CAT scan was not done on this visit in ER. The patient received IV hydration, but still continued to complain of abdominal pain. The patient was admitted to the hospital for further management. Hemoglobin and hematocrit were stable. ADMITTING DIAGNOSES: 1. Upper gastrointestinal bleeding. 2. Intractable abdominal pain. 3. Nausea and vomiting. 4. Hypokalemia. 5. Mild dehydration. HOSPITAL COURSE: The patient admitted to the hospital. Hemoglobin and hematocrit were stable, initially kept NPO, started on the IV fluids. GI evaluation was requested. GI followed the patient. The patient has undergone EGD with the finding of the multiply duodenal ulcerations, duodenitis, and gastritis, status post biopsy. GI recommended follow up with the biopsy results and treat for the H. pylori if positive, meantime continue PPI. Venous duplex of bilateral lower extremities was negative for acute DVT. Pain management provided. Bowel regimen instituted. Diet slowly reintroduced. The patient was able to tolerate diet. Subsequently, IV fluid discontinued. Anion gap closed. LFTs were stable within normal limits. Potassium stabilized after replacement. DVT prophylaxis provided. Antiemetic provided as needed. The patient was stable for discharge. FINAL DIAGNOSES: 1. Intractable abdominal pain. 2. Upper gastrointestinal bleeding. 3. Status post esophagogastroduodenoscopy with findings of duodenitis, multiply duodenal ulcerations, and gastritis. 4. Hypokalemia, resolved. 5. Intractable abdominal pain. DISCHARGE MEDICATIONS: See medication reconciliation list. DISCHARGE INSTRUCTIONS: The patient to follow up with the primary medical doctor. The patient counseled to return back to the emergency room should blood in emesis or stool noted. f Brenda Hamilton M.D. I have been assigned to dictate discharge summary on this account and I was not involved in the patient's management. Madai Pérez N.P. (Vanchtein) DR: CLIFTON JOB#: [id number] CC: ROULA
--- NOTE | 2016-06-22 11:46 | Diagnostic Imaging Report ---
APPROVED REPORT CPT Code: 46715 Present Symptoms Lower Extremity Pain: Bilateral BILATERAL: Imaging reveals a patent deep venous system bilaterally. There is no evidence of thrombus within the femoral, popliteal or tibial segments. The greater saphenous veins are also within normal limits. Doppler indicates normal spontaneous flow within these segments.
== END 2016-06-16 15:00 | disposition home or self-care (01) | DRG 379 ==
LOC: EMR 12:01 → 4E 13:41 → EDBEDREQ 14:04 → 4E 18:16
PROC: 0DB68ZX Excision of Stomach, Via Natural or Artificial Opening Endoscopic, Diagnostic (ICD-10-PCS; principal; 2016-06-16 11:55)
DX: K92.2 Gastrointestinal hemorrhage, unspecified (principal); E86.0 Dehydration; K26.9 Duodenal ulcer, unspecified as acute or chronic, without hemorrhage or perforation; K29.80 Duodenitis without bleeding; K29.70 Gastritis, unspecified, without bleeding; E87.6 Hypokalemia
CPT/HCPCS: 36415; 80048; 80053; 82150; 83690; 83735; 84100; 85025; 85610; 85730; 93970; 94003; 94150; J2405; J8499

== ENCOUNTER 2016-07-07 16:00 | Outpatient (RCR) | payer BC ==
[~2016-07-07 16:00] MED LIST changes: +LIDEX15 GM TOPIC; +OMEPRAZOLE20 M2 ORAL
== END 2016-07-29 | disposition home or self-care (01) ==
LOC: PTY 16:00
DX: S13.4XXA Sprain of ligaments of cervical spine, initial encounter (principal); S23.3XXA Sprain of ligaments of thoracic spine, initial encounter; X58.XXXA Exposure to other specified factors, initial encounter; Y92.9 Unspecified place or not applicable; Y99.8 Other external cause status
CPT/HCPCS: 97110; G0283

== ENCOUNTER 2018-10-10 18:31 | Emergency (ER) | payer BC ==
[~2018-10-10] VITALS: Ht 182.9 cm; Wt 78.9 kg
[2018-10-10] MEDS ORDERED: VALACYCLOVIR500 MG ORAL (18:46)
[2018-10-10] MEDS ORDERED: ACYCLOVIR400 MG ORAL (18:46)
--- NOTE | 2018-10-10 18:57 | NUR ---
ED Nurse Note: Patient walked in to ER c/o Lt knee pain 6/10 radiates to Lt lower leg since 2200 last night. he was dancing at the club and landed on Lt knee because of water on the floor. pt aao x4 and ambulatory but impaired due to Lt knee pain. skin clean and intact. Lt knee and ankle have mild edema but no bruise or wound. calm and cooperative.
--- NOTE | 2018-10-10 19:26 | NUR ---
ED Nurse Note: X ray at bedside.
--- NOTE | 2018-10-10 20:18 | Emergency Room Report ---
History of Present Illness General Chief Complaint: Lower Extremity Injury Present Illness HPI 38-year-old male presents to the emergency department complaining of left knee pain and tenderness and swelling since last night. Patient rates his pain as 8 out of 10 in severity he reports that standing, bending his knee or attempts to walk exacerbates his pain he states with rest he does have some relief. Patient states he had acute onset after he jumped up out of his chair to go dance when he heard somebody light. Patient states that he almost fell to the ground but he did catch himself and states in the process he twisted his leg. Denies numbness tingling or loss of sensation or gross motor movements of the extremities, incontinence of bowel or bladder. Denies CP, Palpitations, LOC, AMS , dizziness, Changes in Vision, weakness or a sudden severe headache. Allergies: Coded Allergies: FLURBIPROFEN (Verified Allergy, Mild, 07/13/09) NSAIDS (NON-STEROIDAL ANTI-INFLAMMA (Unverified Allergy, Unknown, 12/07/14) Patient History Past Medical History: see triage record Past Surgical History: none Pertinent Family History: none Reviewed Nursing Documentation: PMH: Agreed; PSxH: Agreed Nursing Documentation-PMH Hx Cardiac Problems: No Hx Hypertension: No Hx Pacemaker: No Hx Asthma: No Hx COPD: No Hx Diabetes: No Hx Cancer: No Hx Gastrointestinal Problems: Yes - Gastric ulcer and GI bleeding Hx Dialysis: No Hx Neurological Problems: No Hx Cerebrovascular Accident: No Hx Seizures: No Review of Systems All Other Systems: negative except mentioned in HPI Physical Exam Vital Signs Date Time Temp Pulse Resp B/P (MAP) Pulse Ox O2 Delivery O2 Flow Rate FiO2 10/10/18 18:41 98.1 88 16 95 Room Air Sp02 EP Interpretation: reviewed, normal General Appearance: no apparent distress, alert, GCS 15, non-toxic Head: normocephalic, atraumatic Eyes: bilateral eye normal inspection, bilateral eye PERRL ENT: hearing grossly normal, normal voice Neck: full range of motion Respiratory: lungs clear, normal breath sounds, speaking full sentences Cardiovascular #1: regular rate, rhythm, normal capillary refill Musculoskeletal: back normal, gait/station normal - compensatory, normal range of motion, tender - LEft knee- medially and laterally, no obivous deformity, negative anterior or posterior drawer signs, no increased laxity. NVI. Neurologic: alert, oriented x3, responsive, motor strength/tone normal, sensory intact, speech normal, grossly normal Psychiatric: judgement/insight normal Skin: normal color, no rash, warm/dry, well hydrated Medical Decision Making TRAVIS Attestation Dr. Cook is my supervising Physician whom patient management has been discussed with. Diagnostic Impression: Primary Impression: Left knee sprain Qualified Codes: S83.92XA - Sprain of unspecified site of left knee, initial encounter ER Course 38-year-old male presents to the emergency department complaining of left knee pain and tenderness and swelling since last night. Patient rates his pain as 8 out of 10 in severity he reports that standing, bending his knee or attempts to walk exacerbates his pain he states with rest he does have some relief. Patient states he had acute onset after he jumped up out of his chair to go dance when he heard somebody light. Patient states that he almost fell to the ground but he did catch himself and states in the process he twisted his leg. Denies numbness tingling or loss of sensation or gross motor movements of the extremities, incontinence of bowel or bladder. Denies CP, Palpitations, LOC, AMS , dizziness, Changes in Vision, weakness or a sudden severe headache. Ddx considered but are not limited to Fracture, dislocation, contusion, Sprain/ Strain/Spasm, meniscal or ligamental tear/injury. Vital signs: are WNL, pt. is afebrile H&PE are most consistent with musculoskeletal injury will perform imaging to r/ o fractures/dislocations. ORDERS: - X-ray Left Knee 3 views - negative for fx, Dislocation, or significant soft tissue injury, per preliminary read in ED, and signed by TRAVIS Oscar , my supervising physician has reviewed, and agrees with my interpretation. ED INTERVENTIONS: --[place] PO - -Knee Immobilizer splint applied to the LEft Knee by certified bench jeweler technician. Pt. remains neurovascularly intact. --Patient is provided with crutches and instructed on their use DISCHARGE: At this time pt. is stable for d/c to home. Will provide printed patient care instructions, and any necessary prescriptions. Care plan and follow up instructions have been discussed with the patient prior to discharge. Other X-Ray Diagnostic Results Other X-Ray Diagnostic Results : X-Ray ordered: Left KNEE # of Views/Limited Vs Complete: 3 View Indication: Pain EP Interpretation: Yes TRAVIS Xray: Interpretation reviewed, by supervising MD, and agrees with findings. Interpretation: no dislocation, no soft tissue swelling, no fractures, other - knee effusion Impression: Other - abnormal Electronically Signed by: Shahana Oscar PA-C Last Vital Signs Date Time Temp Pulse Resp B/P (MAP) Pulse Ox O2 Delivery O2 Flow Rate FiO2 10/10/18 18:41 98.1 88 16 95 Room Air Status: improved Disposition: HOME, SELF-CARE Condition: Stable Scripts Acetaminophen With Codeine (T#3) (TYLENOL #3 TAB*) Y Tab 1 TAB ORAL Q6HR PRN for For Pain, #15 TAB Prov: Shahana Oscar 10/10/18 Referrals: NOT CHOSEN IPA/MD,REFERRING (PCP) Additional Instructions: Take medications as directed. Follow up with an WRAPPING MACHINE OPERATOR in 3-5 days, even if your symptoms have resolved. If symptoms persist MRI may be required at the discretion of your PCP or Ortho Specialist. --Please review list of primary care clinics, if you do not already have a primary care provider who can give you an Orthopedic Referral. Return sooner to ED if new symptoms occur, or current symptoms become worse. Do not drink alcohol, drive, or operate heavy machinery while taking Tylenol # 3 as this may cause drowsiness. - Please note that this Emergency Department Report was dictated using [employer] carrier technology software, occasionally this can lead to erroneous entry secondary to interpretation by the dictation equipment. Shahana Oscar October 10, 2018 20:18
[2018-10-10] MEDS ORDERED: HYDROcodone/Acetamin 5/325 tab ORAL ONE (20:30)
[2018-10-10] MEDS ORDERED: ACETAMINOPHEN-1 EAC1 ORAL (20:38)
--- NOTE | 2018-10-10 20:38 | NUR ---
ED Nurse Note: Crutches and Lt knee immobilizer are providing with education.
[2018-10-10 20:51] VITALS: BP 122/65
--- NOTE | 2018-10-10 20:54 | NUR ---
ER DISCHARGE NOTE: Patient is cleared to be discharged per ERPA after immobilizer and crutches were provided, pt is aox4, on room air, with stable vital signs. pt was given dc and prescription instructions with x-ray images, pt was able to verbalize understanding, pt id band removed. pt is able to ambulate with steady gait with crutches. pt took all belongings.
--- NOTE | 2018-10-11 11:54 | Diagnostic Imaging Report ---
INDICATION: Knee Pain COMPARISON: None 3 views of the left knee were obtained. FINDINGS: No acute fracture, malalignment, or joint effusion are identified. Joint space is relatively well-maintained. Impression: Negative for acute injury
== END 2018-10-10 20:55 | disposition home or self-care (01) ==
LOC: EMR 19:00
DX: S83.92XA Sprain of unspecified site of left knee, initial encounter (principal); X50.1XXA Overexertion from prolonged static or awkward postures, initial encounter; Y92.9 Unspecified place or not applicable; Z88.6 Allergy status to analgesic agent; Z88.8 Allergy status to other drugs, medicaments and biological substances
CPT/HCPCS: 29505; 99283

== ENCOUNTER 2018-11-03 12:29 | Emergency (ER) | payer BC ==
[~2018-11-03] VITALS: Ht 182.9 cm; Wt 77.6 kg
[~2018-11-03 12:29] MED LIST changes: +ACETAMINOPHEN-1 EAC1 ORAL; +ACYCLOVIR400 MG ORAL; +VALACYCLOVIR500 MG ORAL
--- NOTE | 2018-11-03 12:40 | NUR ---
ED Nurse Note: PT WALKED IN TO ER TODAY FROM HOME. AOX4. PT C/O LEFT ANKLE SWELLING AND PAIN, 10/10 X LAST NIGHT WHEN HE TWISTED IT WHILE EXERCISING. PT STATES PAIN IS EXACERBATED WITH MOVEMENT. PT STATES HE HAD PERCOCET AT HOME AND TOOK ONE THIS MORNING AROUND 0600 BUT WITHOUT PAIN RELIEF. ON ASSESSMENT, PT PRESENTS WITH LEFT ANKLE SWELLING BUT NO DISCOLORATION/BRUISING NOTED. CAP REFILL <3 SECONDS AND CIRCULATION AND SENSATION INTACT.
[2018-11-03] MEDS ORDERED: NKM (12:50)
--- NOTE | 2018-11-03 13:09 | Emergency Room Report ---
History of Present Illness General Chief Complaint: Lower Extremity Injury Source: Patient Present Illness HPI 38-year-old male with history of gastritis and multiple injuries here complaining of pain in left ankle after a twisting injury while playing judo 1 day ago. Patient is rating the pain 10 out of 10, without radiation denying tingling and numbness has been icing his ankle and took an Percocet. Patient reports that he has history of GI bleeding cannot take NSAIDs. He reports that he continued to do his judo practice after his injury. Denies all other injuries, calf tenderness, chest pain, shortness of breath, palpitation, and all other associated symptoms Allergies: Coded Allergies: FLURBIPROFEN (Verified Allergy, Mild, 07/13/09) NSAIDS (NON-STEROIDAL ANTI-INFLAMMA (Unverified Allergy, Unknown, 12/07/14) Patient History Past Medical History: see triage record Past Surgical History: unable to obtain Pertinent Family History: none Immunizations: UTD Reviewed Nursing Documentation: PMH: Agreed; PSxH: Agreed Nursing Documentation-PMH Past Medical History: No History, Except For Hx Cardiac Problems: No Hx Hypertension: No Hx Pacemaker: No Hx Asthma: No Hx COPD: No Hx Diabetes: No Hx Cancer: No Hx Gastrointestinal Problems: Yes - Gastric ulcer and GI bleeding Hx Dialysis: No Hx Neurological Problems: No Hx Cerebrovascular Accident: No Hx Seizures: No Review of Systems All Other Systems: negative except mentioned in HPI Physical Exam Vital Signs Date Time Temp Pulse Resp B/P (MAP) Pulse Ox O2 Delivery O2 Flow Rate FiO2 11/03/18 12:32 98.1 99 17 126/75 (92) 99 Room Air Sp02 EP Interpretation: reviewed, normal General Appearance: normal inspection, well appearing, no apparent distress, alert, GCS 15 Head: normocephalic, atraumatic Eyes: bilateral eye normal inspection, bilateral eye PERRL ENT: normal ENT inspection, hearing grossly normal, normal pharynx Neck: normal inspection, full range of motion, supple Respiratory: normal inspection, chest non-tender, no rhonchi, no wheezing Cardiovascular #1: normal inspection, no edema, no murmur Cardiovascular #2: 2+ dorsalis pedis (R), 2+ dorsalis pedis (L) Gastrointestinal: normal inspection, no mass Genitourinary: no CVA tenderness Musculoskeletal: back normal, swelling - Left lateral ankle, other - Sensation intact Neurologic: normal inspection, alert, oriented x3 Psychiatric: normal inspection, judgement/insight normal Skin: normal inspection, normal color, no rash Lymphatic: normal inspection, no adenopathy Medical Decision Making PA Attestation All my diagnosis and treatment plans were reviewed ad discussed with my supervising physician Dr. Cook Diagnostic Impression: Primary Impression: Left ankle sprain ER Course 38-year-old male with history of gastritis and multiple injuries here complaining of pain in left ankle after a twisting injury while playing judo 1 day ago. Patient is rating the pain 10 out of 10, without radiation denying tingling and numbness has been icing his ankle and took an Percocet. Patient reports that he has history of GI bleeding cannot take NSAIDs. He reports that he continued to do his judo practice after his injury. Denies all other injuries, calf tenderness, chest pain, shortness of breath, palpitation, and all other associated symptoms Ddx considered but are not limited to: ankle sprain, ankle strain, ankle fracture, ankle contusion Vital signs: are WNL, pt. is afebrile H&PE are most consistent with: Left ankle sprain ORDERS: Left ankle x-ray Tylenol 500 Voltaren gel ED INTERVENTIONS: Sung wrap and crutches DISCHARGE: At this time pt. is stable for d/c to home. Will provide printed patient care instructions, and any necessary prescriptions. Care plan and follow up instructions have been discussed with the patient prior to discharge. Avoid strenuous physical activity follow-up with her primary care provider keep Sung wrap on keep leg elevated Other X-Ray Diagnostic Results Other X-Ray Diagnostic Results : X-Ray ordered: Left ankle # of Views/Limited Vs Complete: 3 View Indication: Pain EP Interpretation: Yes PA Xray: Interpretation reviewed, by supervising MD, and agrees with findings. Interpretation: no dislocation, no soft tissue swelling Impression: No acute disease Electronically Signed by: becky wood PA-C Last Vital Signs Date Time Temp Pulse Resp B/P (MAP) Pulse Ox O2 Delivery O2 Flow Rate FiO2 11/03/18 12:32 98.1 99 17 126/75 (92) 99 Room Air Disposition: HOME, SELF-CARE Condition: Stable Scripts Acetaminophen* (TYLENOL EXTRA STRENGTH*) 500 Mg Tablet 500 MG ORAL Q8H PRN for Prn Headache/Temp > 101, #30 TAB 0 Refills Prov: Becky Moreno 11/03/18 Diclofenac Sodium (VOLTAREN) 100 Gm Gel..gram. 2 GM TP TID, #100 GM Prov: Becky Moreno 11/03/18 Patient Instructions: Ankle Sprain Additional Instructions: Take medication as directed keep your ankle elevated avoid strenuous physical activity 2 weeks of no karate practice advised follow-up with your primary care provider for further assessment further imaging may be needed such as MRI Becky Moreno Nov 03, 2018 13:09
[2018-11-03] MEDS ORDERED: VOLTAREN100 G1 TP (13:18)
[2018-11-03] MEDS ORDERED: TYLENOL EXTRA500 MG ORAL (13:18)
--- NOTE | 2018-11-03 13:29 | NUR ---
ED Nurse Note: PT SITTING PEACEFULLY IN CHAIR IN NAD. AOX4. PT'S ANKLE WRAPPED AND CRUTCHES PROVIDED. PT EDUCATED ON PROPER USE OF CRUTCHES AND PT IS ABLE TO DEMONSTRATE BACK AMBULATION WITH PROPER USE OF ASSISTIVE DEVICE. PRESCRIPTIONS AND DISCHARGE PAPERWORK EXPLAINED TO PT. PT VERBALIZES UNDERSTANDING AND ALL QUESTIONS ANSWERED. PRESCRIPTIONS AND DISCHARGE PAPERWORK GIVEN TO PT AND ID WRISTBAND REMOVED. PT WALKED OUT OF ER WITH PROPER ASSISTIVE DEVICE USE AND ALL BELONGINGS.
[2018-11-03 13:31] VITALS: BP 122/78
--- NOTE | 2018-11-03 14:16 | Diagnostic Imaging Report ---
Indication: left ankle pain Comparison: None Findings: 3 views of the left ankle obtained. No acute fracture, malalignment, periostitis, or osteochondral defects are identified. There is moderate lateral soft tissue swelling present. Impression: No acute fracture
== END 2018-11-03 13:27 | disposition home or self-care (01) ==
LOC: EMR 13:01
DX: S93.402A Sprain of unspecified ligament of left ankle, initial encounter (principal); X50.1XXA Overexertion from prolonged static or awkward postures, initial encounter; Y92.9 Unspecified place or not applicable; Z88.6 Allergy status to analgesic agent
CPT/HCPCS: 99283